=== PATIENT | female | born 1970 | race Caucasian/White ===

== ENCOUNTER 2016-12-15 08:16 | Emergency (ER) | payer BC ==
[2016-12-15 08:41] VITALS: BP 122/81
[2016-12-15] MEDS ORDERED: Tetan/Diph/Pertus SYR(Tdap)* 0.5 ML SYR(BOOSTRIX) use SYR IM ONE (09:10)
[2016-12-15 12:28] LABS: Hematocrit 45 % (35-47); Hemoglobin 14.7 g/dl (12.0-16.0); Mean Corpuscular HGB Conc 33 g/dl (31-36); Mean Corpuscular Hemoglobin 29 pg (27-31); Mean Corpuscular Volume 87 fL (80-97); Mean Platelet Volume 9 um3 (7.4-10.4); Red Blood Count 5.11 10^6/ul (4.0-5.4); Red Cell Distribution Width 15 % (10.5-15); White Blood Count 11.2 10^3/ul (3.5-10.8)
[2016-12-15 13:54] LABS: Erythrocyte Sed Rate 35 mm/Hr (0-14)
--- NOTE | 2016-12-16 12:53 | UC ---
Progress - Progress Note Progress Note: PLS CALL PT. LABS RESULTS C/W INFLAMMATORY PROCESS LIKELY DUE TO CURRENT ACUTE CONDITION. VARICELLA AND LYME SEROLOGY NOT YET AVAILABLE - NEHA DURHAM MD
[2016-12-16 14:35] LABS: Varicella IgG Antibody Index 2.4; Varicella-Zoster IgG Antibody Positive
[2016-12-16 23:12] LABS: Varicella-Zoster IgM Antibody Negative (Negative)
--- NOTE | 2017-01-09 11:19 | UC ---
Viet Berkowitz Angela, scribed for Jayla Hamilton MD on 12/15/16 at 0854 . Skin Complaint HPI - HPI Summary HPI Summary: This pt is a 45 y/o female presenting to [facility] c/o rash on her lower neck. Pt reports her rash is painful since yesterday. She just noticed her rash today. Pt denies involvement of any other body parts. Pt notes a slight headache but denies cough, rhinorrhea. She states she has been stressed recently with work, working "crazy hours," and with her grandmother in the hospital. Pt had the chicken pox at a younger age, unsure of what age. PMHx: HTN. Her PCP is Dr. Hood. She states her last tetanus shot was approximately 10 years ago. - History of Current Complaint Chief Complaint: UCRash Stated Complaint: RASH Hx Obtained From: Patient Hx Last Menstrual Period: tubal ligation Onset/Duration: Lasting Days - 1, Still Present Skin Exposure Onset/Duration: Days Ago - 1 Timing: Constant Pain Intensity: 3 Pain Scale Used: 0-10 Numeric Location: Other - lower neck Character: Pain, Redness Associated Signs & Symptoms: Positive: Rash - and headache - Allergy/Home Medications Allergies/Adverse Reactions: Allergies Allergy/AdvReac Type Severity Reaction Status Date / Time No Known Allergies Allergy Verified 07/01/16 09:04 Review of Systems Constitutional: Negative Skin: Rash Eyes: Negative ENT: Negative Respiratory: Negative Cardiovascular: Negative Gastrointestinal: Negative Genitourinary: Negative Motor: Negative Neurovascular: Negative Musculoskeletal: Negative Neurological: Headache Psychological: Negative Is Patient Immunocompromised?: No All Other Systems Reviewed And Are Negative: Yes PMH/Surg Hx/FS Hx/Imm Hx Other Endocrine History: DENIES: diabetes Cardiovascular History: Hypertension - Surgical History Surgical History: Yes Surgery Procedure, Year, and Place: gall bladder removed. APPENDECTOMY. tubal ligation - Family History Known Family History: Positive: Hypertension - mother, Diabetes - father, Other - Breast CA in maternal grandmother's sisters. Father: prostate CA. - Social History Alcohol Use: Occasionally Substance Use Type: None Smoking Status (MU): Never Smoked Tobacco Physical Exam Triage Information Reviewed: Yes Appearance: Well-Nourished Vital Signs: Initial Vital Signs Temp 98.0 F 12/15/16 08:33 Pulse 69 10/24/17 08:33 Resp 18 12/15/16 08:33 BP 122/81 12/15/16 08:33 Pulse Ox 98 12/15/16 08:33 Vital Signs Reviewed: Yes Eye Exam: Normal ENT Exam: Normal ENT: Positive: TMs normal. Negative: Pharyngeal erythema Neck exam: Normal - see "skin" Neck: Positive: Supple Respiratory: Positive: Chest non-tender, Lungs clear, Normal breath sounds, No respiratory distress, No accessory muscle use Cardiovascular: Positive: RRR, No Murmur, Pulses Normal, Brisk Capillary Refill Abdominal Exam: Normal Abdomen Description: Positive: Nontender, No Organomegaly, Soft Bowel Sounds: Positive: Present Musculoskeletal Exam: Normal Musculoskeletal: Positive: Strength Intact - moves all 4 ext's Neurological Exam: Normal - nonfocal, grossly intact Psychological Exam: Normal - conversing easily and appropriately Skin: Positive: rashes - Left shoulder - approx 4cm by 2 cm red raised lesions with some papular formation. + underlying muscle tenderness. No fluctuance. Course/Dx - Course Course Of Treatment: Left upper shoulder rash, concerning for varicella zoster. Can not exclude alternate etiology, as such will check blood work. reviewed wound care instructions, ashleigh need to avoid astringents, avoid picking. reviewed contact precautions. F/u pcp 1 week. Blood work as below. - Diagnoses Provider Diagnoses: Left upper shoulder rash, concerning for varicella zoster. see above Discharge - Discharge Plan Condition: Stable Disposition: HOME Prescriptions: Mupirocin 2% OINT* [Bactroban 2 % Oint*] 1 applic TOPICAL DAILY #1 tube ValACYclovir (*) [Valtrex 1 GM(*)] 1 gm PO TID #30 tab Patient Education Materials: Diphtheria/Acellular Pertussis/Tetanus Booster Vaccine (By injection), Shingles (ED) Referrals: Laron Hood MD [Primary Care Provider] - Additional Instructions: Rash concerning for shingles. Blood work today. Avoid astringents, local irritants to the wound(s). Please follow up with your primary care provider in approximately 1 week. Seek medical attention for worse or new problems in the meantime. The documentation as recorded by the Viet dawkins Angela accurately reflects the service I personally performed and the decisions made by me, Jayla Hamilton MD.
== END 2016-12-15 09:39 | disposition home or self-care (01) ==
LOC: UCEAST 08:16
DX: R21 Rash and other nonspecific skin eruption (principal); R51 Headache; Z23 Encounter for immunization; I10 Essential (primary) hypertension; Z90.49 Acquired absence of other specified parts of digestive tract; Z90.89 Acquired absence of other organs
CPT/HCPCS: 36415; 85025; 85652; 86140; 86618; 86787; 90471; 90715; 99212; G0463

== ENCOUNTER 2017-09-03 08:02 | Observation (INO) | payer BC ==
[~2017-09-03 08:02] MED LIST: Buffered Lidocaine 0.9% SYRIN* 5 ML/SYR SYRINGE INTRADERM ONE
[2017-09-03] MEDS ORDERED: ceFAZolin 2 GM PREMIX in ORs 2 GM/50 ML BAG IVPB ONE (08:06)
--- OUTSIDE RECORDS SUMMARY | 2017-09-03 08:08 | XMS REPORT ---
:1970 External Reference #:[id number] Author Organization Formerly [facility] Address [address] [place] [address] Phone [phone] Care Team Providers Name Role Phone Laron Hood M.D. Primary Care Physician Unavailable Payers Type Date Identification Numbers Payment Provider Subscriber Commercial Effective: Policy Number: [id number] Sengus MEYER Lety Caruso 2009 Expires: 2012 Group Name: [employer] [address] [address] PayID: [id number] HAILEE Murillo 56421 Medigap Part B Effective: 2001 Policy Number: Brayan CAMARGOLOKI Lety Caruso [id number] Expires: 2009 Group Number: [id number] [address] Group Name: BC/BS HAILEE Crews 18543 PayID: [id number] Medigap Part B Effective: 2012 Policy Number: Sengus MEYER Lety Caruso [id number] Group Name: Marlene [address] [address] PayID: [id number] HAILEE Murillo 78551 Problems Description No Information Family History Date Family Member(s) Problem(s) Comments Father Alcoholism Father Cancer, Prostate Father Diabetes Father Pulmonary Embolism x 2. s/p spine surgery and immobility Mother Asthma Mother Hypertension First Brother due to Cancer () First Brother due to () Alcoholism First Brother due to Cirrhosis () First Brother due to () - and Alcoholism bleeding First Sister Thyroid Disease First Sister Alcoholism First Sister Obesity : (age Maternal Grandfather due to Stroke 88 Years) Maternal Grandfather CAD AR and CABG at 88 Maternal Grandfather Atrial Fibrillation Paternal Uncles Diabetes Paternal Uncles due to AR () - around 60's. Paternal Aunts Obesity Social History Type Date Description Comments Marital Status Lives With Spouse Lives With Son Lives With Daughter Occupation [employer] Manager for [employer] Smoking Patient smoking status is unknown Allergies, Adverse Reactions, Alerts Date Description Reaction Status Severity Comments 01/03/2004 Levaquin active "insomnia" Medications Medication Date Status Form Strength Qnty SIG Indications Ordering Provider Lisinopril 11/01 Active Tablets 2.5mg 30tab take one Digna s tablet by P. mouth every Blegen, day M.D. Hydrochlorothiazid 10/08 Active Tablets 12.5mg 30tab Take One I10 Liz e s Tablet By Killian, Mouth Every M.D., Morning R.D. Citalopram 10/18 Active Tablets 10mg 30tab take one Crystal Hydrobromide s tablet by Charly, mouth every BLOOD BANK ORDER CONTROL CLERK day Meloxicam Active Tablets 7.5mg take 1 Unknown /0000 tablet by mouth twice daily with food as needed Ketorolac 03/11 Hx Tablets 10mg 20tab Take 1 B27.99 Crystal Tromethamine s tablet by Charly, - mouth every BLOOD BANK ORDER CONTROL CLERK 08/23 6 hours need for pain. DO Not Take for more than 5 days. Take with food Cheratussin ac 02/11 Hx Solution 100-10mg/ 473ml 10 J06.9 Crystal 5ML milliliters Charly, - every 4 to BLOOD BANK ORDER CONTROL CLERK 08/23 6 hours needed; maximum daily dose: 60 ml/day Transderm-Scop 03/22 Hx Patches 1mg/3Days 10uni apply one Laron (1.5 MG) 72HR ts patch q 3 Hood, - days. M.D. 06/10 Apply 4 hrs /2016 before boarding ship. Do not cut patches. Cyclobenzaprine 04/04 Hx Tablets 10mg 30tab 1/2 or 1 by S33.6xxD Shawnti HCL s mouth three R. Storm, - times a day GAME DEVELOPER-C 04/14 for muscle spasm, will cause tiredness Naproxen 04/04 Hx Tablets 500mg 60tab one tab by wjorgei /2015 s mouth twice R. Storm, - daily with GAME DEVELOPER-C 06/10 food for pain/inflam mation Medrol (Zeeshan) 03/30 Hx Tablets 4mg 21tab Take as M54.5 Liz s Billy Castañeda M.D., 06/10 R.D. /2016 Triamcinolone 03/25 Hx Cream 0.1% 15gm apply Laron Acetonide /2012 sparingly Hood, - to affected M.D. 11/08 area bid /2014 Citalopram 09/10 Hx Tablets 20mg 30tab 1 tablet po 300.02 Itzel Hydrobromide s qd Jose, - GAME DEVELOPER-C 10/18 Paroxetine HCL 08/31 Hx Tablets 20mg 30tab 1/2 tablet 300.02 Itzel s po for 7 Jose, - days, then GAME DEVELOPER-C 09/10 1 po qd Hydroxyzine HCL 08/31 Hx Tablets 25mg 30tab 1-2 po q 6 300.02 Itzel s hr prn Jose, - anxiety/ins GAME DEVELOPER-C 11/08 omnia Tretinoin 08/31 Hx Cream 0.05% 20gm apply a 706.1 Itzel thin layer Jose, - to your GAME DEVELOPER-C 11/08 face hs after washing Clindamycin 08/31 Hx Gel 1% 60gm apply a 706.1 thin film Jose, - to face GAME DEVELOPER-C 11/08 once or /2014 twice daily Amoxicillin 02/20 Hx Tablets 875mg 20tab 1 po bid 034.0 s for 10 days Kaitlin Willoughby, 08/31 M.DLencho /2011 Asmanex 01/02 Hx Inhaler 220mcg 1unit 1 puff qd 786.2 Veronica Twistihaler /2008 s A. - Augustin, 11/08 F.N.P.C. /2014 Maxair Autohaler 01/02 Hx Aerosol 200mcg/In 2 puffs 786.2 Veronica /2008 h every 4-6 A. - hours prn, Augustni, 11/08 bronchospas F.N.P.C. /2014 m Mirena 09/14 Hx IUD 20mcg/24H inserted R 01/29 Billy Hood M.D. 04/28 Codeine Phosphate 12/03 Hx Solution 15mg/5ML 80ml 1-4 tsp q4h prn Billy Hood M.D. 12/03 Oxycodone HCL 12/03 Hx Capsules 5mg 30cap 1-2 q4h prn s Billy Hood M.D. 01/02 Zithromax 06/10 Hx Tablets 250mg 6tabs 2 On Day 461.8 One, Then Erwin - One qd X4 M.DLencho Diflucan 06/10 Hx Tablets 150mg 1tabs 1 Tablet Once prn Billy Hood M.D. 09/08 Ortho Tri-Cyclen Hx Tablets 0.035mg;0 Varn,Althea /0000 .18mg;0.0 gaye - 35 09/14 Medications Administered in Office Medication Date Status Form Strength Qnty SIG Indications Ordering Provider Injection Administered Injection [facility] Ketorolac 018 Shortle, Tromethamine BLOOD BANK ORDER CONTROL CLERK Per 15 MG (Toradol) Immunizations CPT Code Status Date Vaccine Lot # [id number] Given 11/23/2016 Influenza Virus Vaccine, Quadrivalent, 3 Yr > Quad, Preserv Free 77642 Given 01/22/2015 Influenza Virus Vaccine, Quadrivalent, 3 Yr > [id number] Quad, Preserv Free 20076 Given 12/31/2006 Influenza Virus Vaccine, 3 Yrs And Above 37021 Given 01/01/2006 Influenza Virus Vaccine, 3 Yrs And Above [id number] 16273 Given 10/20/2005 Tdap (Adacel) [id number] Given 12/01/2004 Influenza Virus Vaccine, 3 Yrs And Above Vital Signs Date Vital Result Comment 08/23/2017 Weight 181.00 lb Weight in kg's 82.102 BP Systolic 118 mmHg BP Diastolic 82 mmHg Heart Rate 71 /min Body Temperature 99.2 F Respiratory Rate 18 /min O2 % BldC Oximetry 98 % 03/15/2017 BP Systolic 150 mmHg BP Diastolic 97 mmHg Heart Rate 76 /min Body Temperature 98.9 F 03/11/2017 Weight 200.00 lb Weight in kg's 90.720 BP Systolic 130 mmHg BP Diastolic 88 mmHg Heart Rate 102 /min Body Temperature 98.5 F Respiratory Rate 16 /min 03/04/2017 Weight 198.00 lb Weight in kg's 89.813 BP Systolic 110 mmHg BP Diastolic 72 mmHg Heart Rate 88 /min Body Temperature 98.2 F Respiratory Rate 14 /min O2 % BldC Oximetry 98 % 02/11/2017 Weight 199.00 lb Weight in kg's 90.266 BP Systolic 122 mmHg BP Diastolic 98 mmHg Heart Rate 76 /min Body Temperature 97.3 F Respiratory Rate 18 /min O2 % BldC Oximetry 98 % 12/29/2016 BP Systolic 107 mmHg BP Diastolic 68 mmHg Heart Rate 68 /min Body Temperature 99.5 F 06/24/2016 Weight 198.00 lb Weight in kg's 89.813 BP Systolic 112 mmHg BP Diastolic 80 mmHg Heart Rate 76 /min Body Temperature 98.6 F Respiratory Rate 12 /min Height 65 inches 5'5" BMI (Body Mass Index) 32.9 kg/m2 Last Menstrual Period [id number] 06/10/2016 Weight 198.00 lb Weight in kg's 89.813 BP Systolic 120 mmHg BP Diastolic 82 mmHg Heart Rate 73 /min Body Temperature 97.5 F Respiratory Rate 17 /min O2 % BldC Oximetry 98 % 04/04/2015 Weight 191.00 lb Weight in kg's 86.638 BP Systolic 124 mmHg BP Diastolic 68 mmHg Heart Rate 82 /min 03/30/2015 Weight 190.00 lb Weight in kg's 86.184 BP Systolic 140 mmHg BP Diastolic 104 mmHg Heart Rate 88 /min 03/12/2015 Weight 189.00 lb Weight in kg's 85.730 BP Systolic 136 mmHg BP Diastolic 80 mmHg Heart Rate 70 /min 11/08/2014 Weight 182.00 lb Weight in kg's 82.555 BP Systolic 124 mmHg BP Diastolic 72 mmHg Heart Rate 66 /min Height 64 inches 5'4" BMI (Body Mass Index) 31.2 kg/m2 Last Menstrual Period [id number] 10/08/2014 Weight 180.00 lb Weight in kg's 81.648 BP Systolic 160 mmHg BP Diastolic 90 mmHg Heart Rate 68 /min 03/25/2012 Weight 197.00 lb Weight in kg's 89.359 BP Systolic 136 mmHg BP Diastolic 96 mmHg Heart Rate 80 /min Body Temperature 97.9 F 01/20/2012 Weight 194.00 lb Weight in kg's 87.998 BP Systolic 118 mmHg BP Diastolic 68 mmHg Heart Rate 78 /min 09/25/2011 Weight 187.00 lb Weight in kg's 84.823 BP Systolic 110 mmHg BP Diastolic 80 mmHg Heart Rate 84 /min 09/11/2011 Weight 185.00 lb Weight in kg's 83.916 BP Systolic 130 mmHg BP Diastolic 82 mmHg Heart Rate 88 /min Height 65.25 inches 5'5.25" BMI (Body Mass Index) 30.5 kg/m2 09/01/2011 Weight 187.00 lb Weight in kg's 84.823 BP Systolic 140 mmHg BP Diastolic 94 mmHg Heart Rate 100 /min Body Temperature 98.8 F 02/20/2011 Weight 176.00 lb Weight in kg's 79.834 BP Systolic 122 mmHg BP Diastolic 76 mmHg Heart Rate 68 /min 01/02/2009 Weight 168.00 lb Weight in kg's 76.205 BP Systolic 120 mmHg BP Diastolic 78 mmHg Heart Rate 68 /min Body Temperature 97.7 F O2 % BldC Oximetry 98 % 12/10/2008 Weight 168.00 lb Weight in kg's 76.205 BP Systolic 118 mmHg BP Diastolic 80 mmHg Heart Rate 72 /min Body Temperature 98.0 F 09/14/2008 Weight 164.00 lb Weight in kg's 74.390 BP Systolic 130 mmHg BP Diastolic 70 mmHg Heart Rate 68 /min 12/09/2007 BP Systolic 160 mmHg BP Diastolic 110 mmHg Heart Rate 62 /min Height 64 inches 5'4" 12/07/2007 Weight 165.00 lb Weight in kg's 74.844 BP Systolic 160 mmHg Left arm 168/104. right 158/96 BP Diastolic 100 mmHg Left arm 168/104. right 158/96 Heart Rate 80 /min Height 64 inches 5'4" BMI (Body Mass Index) 28.3 kg/m2 12/03/2006 Weight 150.00 lb Weight in kg's 68.040 BP Systolic 122 mmHg BP Diastolic 82 mmHg Heart Rate 98 /min Body Temperature 98.9 F Height 64 inches 5'4" BMI (Body Mass Index) 25.7 kg/m2 06/10/2006 BP Systolic 110 mmHg BP Diastolic 70 mmHg Heart Rate 64 /min Body Temperature 97.1 F Height 64 inches 5'4" 01/03/2004 Weight 141.00 lb Weight in kg's 63.958 BP Systolic 116 mmHg BP Diastolic 64 mmHg Heart Rate 72 /min Body Temperature 98.8 F Height 64 inches 5'4" BMI (Body Mass Index) 24.2 kg/m2 Results Test Date Test Result H/L Range Note CBC Auto Diff 08/24/2017 White Blood Count 10.0 10^3/uL 3.5-10.8 Red Blood Count 4.54 10^6/uL 4.00-5.40 Hemoglobin 12.3 g/dL 12.0-16.0 Hematocrit 37 % 35-47 Mean Corpuscular Volume 80 fL 80-97 Mean Corpuscular Hemoglobin 27 pg 27-31 Mean Corpuscular HGB Conc 34 g/dL 31-36 Red Cell Distribution Width 16 % High 10.5-15 Platelet Count 356 10^3/uL 150-450 Mean Platelet Volume 9.0 um3 7.4-10.4 Abs Neutrophils 6.8 10^3/uL 1.5-7.7 Abs Lymphocytes 2.0 10^3/uL 1.0-4.8 Abs Monocytes 0.8 10^3/uL 0-0.8 Abs Eosinophils 0.2 10^3/uL 0-0.6 Abs Basophils 0.1 10^3/uL 0-0.2 Abs Nucleated RBC 0 10^3/uL Granulocyte % 68.5 % 38-83 Lymphocyte % 19.9 % Low 25-47 Monocyte % 8.3 % High 0-7 Eosinophil % 2.5 % 0-6 Basophil % 0.8 % 0-2 Nucleated Red Blood Cells % 0 Type & Screen 08/24/2017 Patient Blood Type A Positive Antibody Screen NEGATIVE Laboratory test 05/04/2017 Cytology SEE RESULT BELOW 1 finding Laboratory test 03/04/2017 Culture Throat SEE RESULT BELOW 2 finding CBC Auto Diff 03/04/2017 White Blood Count 14.0 10^3/uL High 3.5-10.8 Red Blood Count 4.64 10^6/uL 4.0-5.4 Hemoglobin 13.3 g/dL 12.0-16.0 Hematocrit 41 % 35-47 Mean Corpuscular Volume 89 fL 80-97 Mean Corpuscular Hemoglobin 29 pg 27-31 Mean Corpuscular HGB Conc 32 g/dL 31-36 Red Cell Distribution Width 15 % 10.5-15 Platelet Count 372 10^3/uL 150-450 Mean Platelet Volume 9 um3 7.4-10.4 Abs Neutrophils 10.8 10^3/uL High 1.5-7.7 Abs Lymphocytes 1.8 10^3/uL 1.0-4.8 Abs Monocytes 1.1 10^3/uL High 0-0.8 Abs Eosinophils 0.3 10^3/uL 0-0.6 Abs Basophils 0.1 10^3/uL 0-0.2 Abs Nucleated RBC 0 10^3/uL Granulocyte % 77.2 % 38-83 Lymphocyte % 12.7 % Low 25-47 Monocyte % 7.7 % 1-9 Eosinophil % 1.8 % 0-6 Basophil % 0.6 % 0-2 Nucleated Red Blood Cells % 0 Comp Metabolic Panel 03/04/2017 Sodium 136 mmol/L 133-145 Potassium 3.7 mmol/L 3.5-5.0 Chloride 100 mmol/L Low 101-111 Co2 Carbon Dioxide 26 mmol/L 22-32 Anion Gap 10 mmol/L 2-11 Glucose 113 mg/dL High 70-100 Blood Urea Nitrogen 10 mg/dL 6-24 Creatinine 0.69 mg/dL 0.51-0.95 BUN/Creatinine Ratio 14.5 8-20 Calcium 9.2 mg/dL 8.6-10.3 Total Protein 7.4 g/dL 6.4-8.9 Albumin 4.3 g/dL 3.2-5.2 Globulin 3.1 g/dL 2-4 Albumin/Globulin Ratio 1.4 1-3 Total Bilirubin 0.40 mg/dL 0.2-1.0 Alkaline Phosphatase 102 U/L 34-104 Alt 28 U/L 7-52 Ast 24 U/L 13-39 Egfr Non- 92.4 >60 Egfr 118.9 >60 3 Laboratory test finding 03/04/2017 Monospot Negative Negative 4 Lynn Lantigua Comprehensive 03/04/2017 Ebv Capsid Ag IgG Ab Positive Negative Ebv Capsid Ag IgM Ab Positive Negative Lynn-Lantigua Nuclear Antigen Positive Negative Lynn-Lantigua Virus Interp See Comment 5 Laboratory test finding 02/11/2017 Strep Screen neg Neg CBC W/Auto Differential 12/25/2016 White Blood Count 10.1 10^3/uL 3.5- 10.8 Red Blood Count 4.74 10^6/uL 4.0-5.4 Hemoglobin 13.8 g/dL 12.0-16.0 Hematocrit 42 % 35-47 Mean Corpuscular Volume 89 fL 80-97 Mean Corpuscular Hemoglobin 29 pg 27-31 Mean Corpuscular HGB Conc 33 g/dL 31-36 Red Cell Distribution Width 15 % 10.5-15 Platelet Count 350 10^3/uL 150-450 Mean Platelet Volume 9 um3 7.4-10.4 Abs Neutrophils 5.9 10^3/uL 1.5-7.7 Abs Lymphocytes 3.0 10^3/uL 1.0-4.8 Abs Monocytes 0.8 10^3/uL 0-0.8 Abs Eosinophils 0.4 10^3/uL 0-0.6 Abs Basophils 0.1 10^3/uL 0-0.2 Abs Nucleated RBC 0.01 10^3/uL Granulocyte % 58.0 % 38-83 Lymphocyte % 29.5 % 25-47 Monocyte % 8.1 % 1-9 Eosinophil % 3.6 % 0-6 Basophil % 0.8 % 0-2 Nucleated Red Blood Cells % 0.1 Laboratory test finding 12/25/2016 Erythrocyte Sed Rate 36 mm/Hr High 0- 14 C Reactive Protein 12.49 mg/L High < 5.00 6 Laboratory test finding 12/15/2016 C Reactive Protein 10.93 mg/L High < 5.00 7 CBC Auto Diff 12/15/2016 White Blood Count 11.2 10^3/uL High 3.5-10.8 Red Blood Count 5.11 10^6/uL 4.0-5.4 Hemoglobin 14.7 g/dL 12.0-16.0 Hematocrit 45 % 35-47 Mean Corpuscular Volume 87 fL 80-97 Mean Corpuscular Hemoglobin 29 pg 27-31 Mean Corpuscular HGB Conc 33 g/dL 31-36 Red Cell Distribution Width 15 % 10.5-15 Platelet Count 342 10^3/uL 150-450 Mean Platelet Volume 9 um3 7.4-10.4 Abs Neutrophils 7.1 10^3/uL 1.5-7.7 Abs Lymphocytes 2.8 10^3/uL 1.0-4.8 Abs Monocytes 0.9 10^3/uL High 0-0.8 Abs Eosinophils 0.4 10^3/uL 0-0.6 Abs Basophils 0.1 10^3/uL 0-0.2 Abs Nucleated RBC 0 10^3/uL Granulocyte % 62.9 % 38-83 Lymphocyte % 24.8 % Low 25-47 Monocyte % 8.4 % 1-9 Eosinophil % 3.2 % 0-6 Basophil % 0.7 % 0-2 Nucleated Red Blood Cells % 0 Laboratory test finding 12/15/2016 Erythrocyte Sed Rate 35 mm/Hr High 0- 14 Varicella Zoster Igg AB 12/15/2016 Varicella-Zoster IgG Positive 8 Antibody Varicella IgG Antibody Index 2.4 9 Laboratory test finding 12/15/2016 Lyme Disease Serology Negative Negative 10 Varicella Zoster Igm AB Negative Negative 11 Laboratory test finding 07/21/2016 Free Cortisol Serum 0.16 g/dL 12 Prolactin 10.8 ng/mL 1.0-25.0 13 Lyme Western Blot 06/24/2016 Lyme Disease IgG Ab WB Negative Negative Lyme Disease IgG Bands Present No bands detecte <SEE NOTE> kDa 14 Lyme Disease IgM Ab WB Negative Negative Lyme Disease IgM Bands Present No bands detecte <SEE NOTE> kDa 15 Lyme Disease Interpretation See Comment 16 Laboratory test finding 06/24/2016 Anaplasma Phagocytophilium <1:64 titer <1:64 17 Babesia Microti Abs 06/24/2016 Babesia microti IgG <1:64 (Igg,Igm) Babesia microti IgM <1:20 Babesia microti Interpretation See Comment 18 Laboratory test finding 06/24/2016 Erythrocyte Sed Rate 46 mm/Hr High 0- 14 19 C Reactive Protein 16.02 mg/L High < 5.00 20 Cyclic Citrullinated Pep Igg TNP () 21 Connective Tissue Panel 06/24/2016 Anti-Nuclear Antibody 0.7 U 22 Cyclic Citrullinated Peptide <15.6 U 23 Interpretation See Comment 24 Laboratory test 06/24/2016 Vitamin D Total 25(Oh) 19.0 ng/mL Low 30-50 25 finding Laboratory test 06/10/2016 Anaplasma Phagocytophilium <1:64 titer <1:64 26 finding Babesia Microti Abs 06/10/2016 Babesia microti IgG <1:64 (Igg,Igm) Babesia microti IgM <1:20 Babesia microti Interpretation See Comment 27 CBC Auto Diff 06/10/2016 White Blood Count 7.8 10^3/uL 3.5-10.8 Red Blood Count 4.65 10^6/uL 4.0-5.4 Hemoglobin 13.5 g/dL 12.0-16.0 Hematocrit 41 % 35-47 Mean Corpuscular Volume 89 fL 80-97 Mean Corpuscular Hemoglobin 29 pg 27-31 Mean Corpuscular HGB Conc 33 g/dL 31-36 Red Cell Distribution Width 14 % 10.5-15 Platelet Count 298 10^3/uL 150-450 Mean Platelet Volume 9 um3 7.4-10.4 Abs Neutrophils 4.4 10^3/uL 1.5-7.7 Abs Lymphocytes 2.3 10^3/uL 1.0-4.8 Abs Monocytes 0.7 10^3/uL 0-0.8 Abs Eosinophils 0.3 10^3/uL 0-0.6 Abs Basophils 0 10^3/uL 0-0.2 Abs Nucleated RBC 0.01 10^3/uL Granulocyte % 57.0 % 38-83 Lymphocyte % 29.5 % 25-47 Monocyte % 9.0 % 1-9 Eosinophil % 3.9 % 0-6 Basophil % 0.6 % 0-2 Nucleated Red Blood Cells % 0.1 Comp Metabolic Panel 06/10/2016 Sodium 139 mmol/L 133-145 Potassium 3.9 mmol/L 3.5-5.0 Chloride 105 mmol/L 101-111 Co2 Carbon Dioxide 28 mmol/L 22-32 Anion Gap 6 mmol/L 2-11 Glucose 84 mg/dL 70-100 Blood Urea Nitrogen 13 mg/dL 6-24 Creatinine 0.68 mg/dL 0.51-0.95 BUN/Creatinine Ratio 19.1 8-20 Calcium 9.1 mg/dL 8.6-10.3 Total Protein 6.6 g/dL 6.4-8.9 Albumin 3.9 g/dL 3.2-5.2 Globulin 2.7 g/dL 2-4 Albumin/Globulin Ratio 1.4 1-3 Total Bilirubin 0.20 mg/dL 0.2-1.0 Alkaline Phosphatase 80 U/L 34-104 Alt 33 U/L 7-52 Ast 23 U/L 13-39 Egfr Non- 94.4 >60 Egfr 121.4 >60 28 CMV Igg/Igm 06/10/2016 Cytomegalovirus IgG Antibody Positive Negative 29 Cytomegalovirus IgM Antibody Negative Negative Lipid Profile (Trig/Chol/HDL) 06/10/2016 Triglycerides 131 mg/dL 30 Cholesterol 197 mg/dL 31 HDL Cholesterol 33.1 mg/dL 32 LDL Cholesterol 138 mg/dL 33 Laboratory test finding 06/10/2016 Magnesium 2.1 mg/dL 1.9-2.7 34 Vitamin B12 481 pg/mL 180-914 35 Erythrocyte Sed Rate 36 mm/Hr High 0-14 36 C Reactive Protein 11.97 mg/L High < 5.00 37 T3 Total 1.51 ng/mL 0.87-1.78 38 Free T4 (Free Thyroxine) 0.96 ng/dL 0.61-1.12 39 TSH (Thyroid Stim Horm) 2.23 mcIU/mL 0.34-5.60 40 Lyme Western Blot 06/10/2016 Lyme Disease IgG Ab WB Negative Negative Lyme Disease IgG Bands Present No bands detecte <SEE NOTE> kDa 41 Lyme Disease IgM Ab WB Negative Negative Lyme Disease IgM Bands Present No bands detecte <SEE NOTE> kDa 42 Lyme Disease Interpretation See Comment 43 Lipid Profile (Trig/Chol/HDL) 10/09/2014 Triglycerides 55 mg/dL 44 Cholesterol 182 mg/dL 45 HDL Cholesterol 45.3 mg/dL 46 LDL Cholesterol 126 mg/dL 47 Laboratory test finding 10/09/2014 TSH (Thyroid Stimulating 3.87 ?IU/mL 0.34-5.60 48 Horm) Comp Metabolic Panel 10/09/2014 Sodium 138 mmol/L 133-145 Potassium 4.0 mmol/L 3.5-5.0 Chloride 106 mmol/L 101-111 Co2 Carbon Dioxide 26 mmol/L 22-32 Anion Gap 6 mmol/L 2-11 Glucose 88 mg/dL 70-100 Blood Urea Nitrogen 11 mg/dL 6-24 Creatinine 0.69 mg/dL 0.51-0.95 BUN/Creatinine Ratio 15.9 8-20 Calcium 8.7 mg/dL 8.6-10.3 Total Protein 6.8 g/dL 6.4-8.9 Albumin 4.4 g/dL 3.2-5.2 Globulin 2.4 g/dL 2-4 Albumin/Globulin Ratio 1.8 1-3 Total Bilirubin 0.40 mg/dL 0.2-1.0 Alkaline Phosphatase 71 U/L 34-104 Alt 46 U/L 7-52 Ast 27 U/L 13-39 Egfr Non- 93.8 >60 Egfr 120.6 >60 49 CBC Auto Diff 10/09/2014 White Blood Count 8.6 10^3/uL 4.8-10.8 Red Blood Count 4.60 10^6/uL 4.0-5.4 Hemoglobin 14.4 g/dL 12.0-16.0 Hematocrit 43 % 35-47 Mean Corpuscular Volume 94 fL 80-97 Mean Corpuscular Hemoglobin 31 pg 27-31 Mean Corpuscular HGB Conc 33 g/dL 31-36 Red Cell Distribution Width 14 % 10.5-15 Platelet Count 236 10^3/uL 150-450 Mean Platelet Volume 9 um3 7.4-10.4 Abs Neutrophils 5.6 10^3/uL 1.5-7.7 Abs Lymphocytes 1.9 10^3/uL 1.0-4.8 Abs Monocytes 0.6 10^3/uL 0-0.8 Abs Eosinophils 0.4 10^3/uL 0-0.6 Abs Basophils 0.1 10^3/uL 0-0.2 Abs Nucleated RBC 0 10^3/uL Granulocyte % 64.7 % 38-83 Lymphocyte % 22.4 % Low 25-47 Monocyte % 7.5 % 1-9 Eosinophil % 4.5 % 0-6 Basophil % 0.9 % 0-2 Nucleated Red Blood Cells % 0 Testosterone Free & Total 09/11/2011 Free Testosterone 0.7 ng/dL 0.3-1.9 50 Total Testosterone 40 ng/dL 8-60 51 Laboratory test finding 09/11/2011 Adrenal 21-Hydroxylase AB <1 U/mL <1 52 Dhea Sulfate 88.0 g/dL 31-228 53 Progesterone,17 Hydroxy 232 ng/dL () 54 Prolactin 20.40 NG/ML 1.0-25.0 Hemoglobin A1c 5.5 % Less Than 6.0 55 Thyroid Panel 09/02/2011 Free Thyroxine 0.74 ng/dL 0.61-1.24 Thyroxine 6.5 g/dL 5-12 TSH 2.01 MIU/ML 0.34-5.60 CBC Auto Diff 09/02/2011 White Blood Count 8.4 CUMM 4.8-10.8 Red Cell Count 4.63 CUMM 4.2-5.4 Hemoglobin 14.3 g/dL 12.0-16.0 Hematocrit 42 % 35-47 Mean Corpuscular Volume 91 um3 79-97 Mean Corpuscular Hemoglob 31 pg 27-31 Mean Corpuscular HGB Cone 34 g/dL 32-36 Redcell Distribution WDTH 13 % 10.5-15 Platelet Count 295 CUMM 150-450 Mean Platelet Volume 8.6 um3 7.4-10.4 Gran % 62.8 % 38-83 Lymph % 25.6 % 25-47 Mononuclear % 7.5 % 1-9 Eosinophil % 3.4 % 0-6 Basophil % 0.7 % 0-2 Abs Lymphs 2.1 1.0-4.8 Abs Mononuclear 0.6 0-0.8 Absolute Neutrophil Count 5.3 1.5-7.7 Abs Eosinophils 0.3 0-0.6 Abs Basophils 0.1 0-0.2 Comp Metabolic Panel 09/02/2011 Sodium 139 mmol/L 135-145 Potassium 4.0 mmol/L 3.5-5.0 Chloride 105 mmol/L 101-111 Co2 (Carbon Dioxide) 26.0 mmol/L 22-32 Anion Gap 8.0 mmol/L 2-11 56 Glucose 107 mg/dL High 70-100 BUN 5 mg/dL Low 6-24 Creatinine 0.7 mg/dL 0.50-1.40 One Over Creatinine 1.42 BUN/Creatinine Ratio 7.1 Low 8-20 Calcium 8.9 mg/dL 8.1-9.9 Total Protein 6.4 GM/DL 6.2-8.1 Albumin 3.9 GM/DL 3.6-5.4 Globulin 2.5 GM/DL 2-4 Albumin/Globulin Ratio 1.6 1-3 Bilirubin Total 0.5 mg/dL 0.4-1.5 57 Alkaline Phosphatase 76 U/L 30-110 Alt (SGPT) 37 U/L 14-54 Ast (Sgot) 31 U/L 12-42 eGFR Non- 93.6 > 60 eGFR 120.4 > 60 58 Laboratory test finding 02/20/2011 Strep Screen POS Neg Laboratory test finding 12/10/2008 Strep Screen NEG Neg Laboratory test finding 12/07/2007 GFR (Calculated) >60 59 Laboratory test finding 12/07/2007 TSH (Thyrotropin) 2.320 uIU/ml 0.350- 5.500 T-3 Total 161.1 ng/dL 87.0-216.0 T-4 Free 1.1 ng/dL 0.8-1.8 Comprehensive Metabolic 12/07/2007 Glucose 100 mg/dL 70-100 BUN 16 mg/dL 4-18 Creatinine, Serum 1.0 mg/dL 0.5-1.2 Sodium 143 mmol/L 136-146 Potassium 4.0 mmol/L 3.5-5.3 Chloride 108 mmol/L 98-110 Carbon Dioxide 25 mmol/L 20-32 Albumin 4.4 g/dL 3.5-4.7 Protein, Total 7.3 g/dL 6.4-8.3 Calcium 9.0 mg/dL 8.4-10.4 Alkaline Phosphatase 81 U/L 10-118 Sgot (Ast) 23 U/L 3-40 SGPT (Alt) 24 U/L 7-50 Bilirubin, Total 0.20 mg/dL Low 0.30-1.20 CBC 12/07/2007 WBC 9.3 x103 4.3-10.9 RBC 4.51 x106 3.80-5.30 Hemoglobin 13.9 g/dL 11.8-15.8 Hematocrit 42.8 % 35.0-47.0 MCV 94.9 fl 82.0-98.0 MCH 30.8 pg 27.5-33.5 MCHC 32.5 g/dL 32.0-36.0 RDW 13.5 % 11.5-14.5 Platelet Count 348 x103 130-400 MPV 11.0 fl High 6.5-10.5 Segmented Neutrophils 64.2 % 44.0-74.0 Lymphocytes 26.1 % 15.0-45.0 Monocytes 7.5 % 2.0-13.0 Eosinophils 1.6 % 0.0-6.0 Basophils 0.6 % 0.0-2.0 Neutrophil Absolute 6.0 x103 1.4-7.0 Lymphocytes Absolute 2.4 x103 1.0-3.4 Monocyte Absolute 0.7 x103 0.2-1.0 Eosinophil Absolute 0.1 x103 0.0-0.5 Basophil Absolute 0.1 x103 0.0-0.2 Laboratory test 12/03/2006 Throat Culture Full NORMAL THROAT FL <SEE 60 finding NOTE> Laboratory test 12/03/2006 Strep Screen NEG Neg finding Laboratory test 12/03/2006 Flu Test A&B, NEG finding [facility] Laboratory test 01/10/2004 Pathology Report GALLBLADDER finding 1 SEE RESULT BELOW Name: LETY CARUSO : [address]: Tarik Gonzales MD Acct: [id number] Unit: [id number] AGE: 46 Location: [facility] Re05/04/17 SEX: F Status: REG REF SPEC: [id number] IDALIA: [id number] [facility] DR: Tarik Gonzales MD REQ: [id number] RECD: 05/05/17 STATUS: BUTCH [place]SL[place] DR: Laron Hood MD _ ORDERED: TP IMAGE ANAL, HPV/Thin Prep COMMENTS: [id number] Negative for Intraepithelial lesion or Malignancy A. Ectocervical/Endocervical Specimen Adequacy: Satisfactory of evaluation Transformation zone component identified Patient Information: HPV: High risk HPV RNA testing regardless of pap results. Actual Specimen Date: 05/04/17 LMP If Unknown: Last Menstrual Period Not Given. Date of Last Specimen: 11/20/15 Date Time Test Result Flag (u) Normal Range 05/04/17 1537 @ HPV RNA Negative Negative @ @ The high-risk HPV types detected by the assay include: 16, @ 18, 31, 33, 35, 39, 45, 51, 52, 56, 58, 59, 66, and 68. Signed (signature on file) PANFILO Stanley ([facility]) 05/06 7487 This Pap test was evaluated with the assistance of the [employer] [facility]. Due to cytologic findings at the appliances sample maker microscope, comprehensive manual rescreening by a Binder Technician may be required. The Pap Smear is a screening test designed to aid in the detection of premalignant and malignant conditions of the uterine cervix. It is not a diagnostic procedure and should not be used as the sole means of detecting cervical cancer. Both false- positive and false- negative reports do occur. Depending on your risk status, a Pap smear should be obtained and evaluated every 1-3 years. END OF REPORT DEPARTMENT OF PATHOLOGY, [address] [place] [address] Neo Coffey M.D. Director [facility] # [id number] 2 SEE RESULT BELOW Name: LETY CARUSO : [address]: Crystal Parks NP Acct: [id number] Unit: [id number] AGE: 46 Location: [facility] Re03/04/17 SEX: F Status: REG REF SPEC: [id number] IDALIA: 03/04/17-[address]: Crystal Parks NP REQ: [id number] RECD: 03/04/17 STATUS: COMP _ SOURCE: THROAT SPDESC: ORDERED: Throat Culture COMMENTS: [id number] Procedure Result Reported Site Throat Culture Final 03/06/17- 1309 ML Organism 1 STREP GROUP C Quantity 3+ Throat cultures are clinically indicated to detect the presence of group A strep, arcanobacterium and yeast. In certain cases, predominating organisms will be reported. * ML - MAIN LAB ([facility]) . END OF REPORT * ML=Testing performed at Main Lab DEPARTMENT OF PATHOLOGY, [address] [place] [address] Neo Coffey M.D. Director [facility] # [id number] 3 Because ethnic data is not always readily available, this report includes an eGFR for both -Americans and non- Americans. The National Kidney Disease Education Program (NKDEP) does not endorse the use of the MDRD equation for patients that are not between the ages of 18 and 70, are , have extremes of body size, muscle mass, or nutritional status, or are non- or non-. According to the National Kidney Foundation, irrespective of diagnosis, the stage of the disease is based on the level of kidney function: Stage Description GFR(mL/min/1.73 m(2)) 1 Kidney damage with normal or decreased GFR 90 2 Kidney damage with mild decrease in GFR 60-89 3 Moderate decrease in GFR 30-59 4 Severe decrease in GFR 15-29 5 Kidney failure <15 (or dialysis) 4 [id number] Would you like an EBV if Monospot is Negative?: Y 5 RESULT: Results may suggest recovery or reactivation. ADDITIONAL INFORMATION In most populations, at least 90% of the adult population will have been infected with EBV sometime in the past and therefore, will be positive for anti-VCA/IgG and anti- EBNA. Antibodies to EBNA develop 6-8 weeks after primary infection and remain present for life. Presence of VCA/ IgM antibodies indicates recent primary infection with EBV. Test Performed by: [facility] [place] [address] 6 Acute inflammation: >10.00 7 Acute inflammation: >10.00 8 Results suggest response to immunization or prior exposure to the virus. REFERENCE VALUE Vaccinated: Positive (>=1.1 AI) Unvaccinated: Negative (<=0.8 AI) 9 Test Performed by: [facility] [place] [address] 10 Serologic response to B. burgdorferi infection is not detected, but cannot rule out early infection during which low or undetectable antibody levels to B. burgdorferi may be present. If clinically indicated, a new serum specimen should be submitted in 7-14 days. Test Performed by: [facility] [place] [address] 11 Test Performed by: [facility] [place] [address] 12 Adult Reference Ranges for Cortisol, Free, LC/MS/MS: 8:00 - 10:00 AM 0.07-0.93 mcg/dL 4:00 - 6:00 PM 0.04-0.45 mcg/dL 10:00 - 11:00 PM 0.04-0.35 mcg/dL This test was developed and its analytical performance characteristics have been determined by [facility]. It has not been cleared or approved by FDA. This assay has been validated pursuant to the CLIA regulations and is used for clinical purposes. Test Performed by: [facility] [address] [place] [address] 13 [id number] No bands detected 15 No bands detected 16 Specific serologic response to B. burgdorferi infection is not detected, but cannot rule out early infection during which low or undetectable antibody levels to B. burgdorferi may be present. If clinically indicated, a new serum specimen should be submitted in 7-14 days. ADDITIONAL INFORMATION CDC criteria require >=5 bands for IgG or >=2 bands for IgM for the Immunoblot to be considered positive. Bands (e.g.,p41) may be detected in patients without Lyme disease, and patterns not meeting the CDC criteria should be interpreted with caution. Immunoblot should be ordered only on specimens that are positive or equivocal by a FDA-licensed Lyme disease antibody screening test (e.g., EIA). Test Performed by: [facility] - [address] [address] 17 ADDITIONAL INFORMATION This test was developed using an analyte specific reagent. Its performance characteristics were determined by [facility] in a manner consistent with CLIA requirements. This test has not been cleared or approved by the U.S. Food and Drug Administration. Test Performed by: [address] [address] 18 ANTIBODY NOT DETECTED REFERENCE RANGES: IgG <1:64 IgM <1:20 Elevated antibody levels to B. microti indicate exposure to the organism. Human babesiosis infection is transmitted by the bite of an infected Ixodes tick or less frequently from transfusion with blood from an infected donor. Definitive diagnosis is made by identifying intraerythrocytic organisms in peripheral blood. In patients with low parasitemia, antibody detection by IFA is recommended. IgG levels greater than or equal to 1:1024 can be detected in acute phase patients with parasites in blood smears. The IFA assay can be used as a seroepidemiologic tool to study the frequency and distribution of B. microti in endemic areas especially in persons with mixed infections also involving Borrelia burgdorferi. This test was developed and its analytical performance characteristics have been determined by [facility]. It has not been cleared or approved by the U.S. Food and Drug Administration. The FDA has determined that such clearance or approval is not necessary. This assay has been validated pursuant to the CLIA regulations and is used for clinical purposes. Test Performed by: [facility], [employer] [address] [place] [address] 19 [id number] Acute inflammation: >10.00 21 Cancelled due to duplicate test on this order Test Performed by: [address], [place] [address] 22 REFERENCE VALUE <=1.0 (Negative) 23 REFERENCE VALUE <20.0 (Negative) 24 Tests for antibodies to dsDNA and YEFRI antigens are not performed automatically unless the DELIO result is > or= 3.0 U. Studies performed at [facility] indicate that positive DELIO results <3.0 U are rarely accompanied by positive second order tests. Test Performed by: [facility] - [address] [address] 25 [id number] 26 ADDITIONAL INFORMATION This test was developed using an analyte specific reagent. Its performance characteristics were determined by [facility] in a manner consistent with CLIA requirements. This test has not been cleared or approved by the U.S. Food and Drug Administration. Test Performed by: [facility] - [address] [address] 27 ANTIBODY NOT DETECTED REFERENCE RANGES: IgG <1:64 IgM <1:20 Elevated antibody levels to B. microti indicate exposure to the organism. Human babesiosis infection is transmitted by the bite of an infected Ixodes tick or less frequently from transfusion with blood from an infected donor. Definitive diagnosis is made by identifying intraerythrocytic organisms in peripheral blood. In patients with low parasitemia, antibody detection by IFA is recommended. IgG levels greater than or equal to 1:1024 can be detected in acute phase patients with parasites in blood smears. The IFA assay can be used as a seroepidemiologic tool to study the frequency and distribution of B. microti in endemic areas especially in persons with mixed infections also involving Borrelia burgdorferi. This test was developed and its analytical performance characteristics have been determined by [facility]. It has not been cleared or approved by the U.S. Food and Drug Administration. The FDA has determined that such clearance or approval is not necessary. This assay has been validated pursuant to the CLIA regulations and is used for clinical purposes. Test Performed by: [employer] [address] [place] [address] 28 Because ethnic data is not always readily available, this report includes an eGFR for both -Americans and non- Americans. The National Kidney Disease Education Program (NKDEP) does not endorse the use of the MDRD equation for patients that are not between the ages of 18 and 70, are , have extremes of body size, muscle mass, or nutritional status, or are non- or non-. According to the National Kidney Foundation, irrespective of diagnosis, the stage of the disease is based on the level of kidney function: Stage Description GFR(mL/min/1.73 m(2)) 1 Kidney damage with normal or decreased GFR 90 2 Kidney damage with mild decrease in GFR 60-89 3 Moderate decrease in GFR 30-59 4 Severe decrease in GFR 15-29 5 Kidney failure <15 (or dialysis) 29 Test Performed by: [place] [address] 30 Desirable <150 Borderline high 150-199 High 200-499 Very High >500 31 Desirable <200 Borderline high 200-239 High >239 32 Low <40 Desirable: 40-60 High: >60 33 Desirable: <100 mg/dL Near Optimal: 100-129 mg/dL Borderline High: 130-159 mg/dL High: 160-189 mg/dL Very High: >189 mg/dL 34 [id number] Normal Range 180 to 914 Indeterminate Range 145 to 180 Deficient Range <145 36 [id number] Acute inflammation: >10.00 38 [id number] 40 [id number] 41 No bands detected 42 No bands detected 43 Specific serologic response to B. burgdorferi infection is not detected, but cannot rule out early infection during which low or undetectable antibody levels to B. burgdorferi may be present. If clinically indicated, a new serum specimen should be submitted in 7-14 days. ADDITIONAL INFORMATION CDC criteria require >=5 bands for IgG or >=2 bands for IgM for the Immunoblot to be considered positive. Bands (e.g.,p41) may be detected in patients without Lyme disease, and patterns not meeting the CDC criteria should be interpreted with caution. Immunoblot should be ordered only on specimens that are positive or equivocal by a FDA-licensed Lyme disease antibody screening test (e.g., EIA). Test Performed by: [facility] [address] [id number] 44 Desirable <150 Borderline high 150-199 High 200-499 Very High >500 45 Desirable <200 Borderline high 200-239 High >239 46 Low <40 Desirable: 40-60 High: >60 47 Desirable: <100 mg/dL Near Optimal: 100-129 mg/dL Borderline High: 130-159 mg/dL High: 160-189 mg/dL Very High: >189 mg/dL 48 FASTING 49 Because ethnic data is not always readily available, this report includes an eGFR for both -Americans and non- Americans. The National Kidney Disease Education Program (NKDEP) does not endorse the use of the MDRD equation for patients that are not between the ages of 18 and 70, are , have extremes of body size, muscle mass, or nutritional status, or are non- or non-. According to the National Kidney Foundation, irrespective of diagnosis, the stage of the disease is based on the level of kidney function: Stage Description GFR(mL/min/1.73 m(2)) 1 Kidney damage with normal or decreased GFR 90 2 Kidney damage with mild decrease in GFR 60-89 3 Moderate decrease in GFR 30-59 4 Severe decrease in GFR 15-29 5 Kidney failure <15 (or dialysis) 50 Test Performed by: [facility] [address] [place] [address] Front Elevator Operator: Nicanor Medina III, M.D. 51 Test Performed by: [place] [address] Front Elevator Operator: Nicanor Medina III, M.D. 52 For research use only. Test Performed by: [address] [address] Front Elevator Operator: Nicanor Medina III, M.D. 53 Test Performed by: [facility] [address] [place] [address] Front Elevator Operator: Nicanor Medina III, M.D. 54 -- REFERENCE VALUE -- < 80 (Follicular) <285 (Luteal) Test Performed by: [facility] [address] [place] [address] Front Elevator Operator: Nicanor Medina III, M.D. 55 THERAPEUTIC TARGET FOR THE TREATMENT OF DIABETES MELLITUS PATIENTS IS <7% HBA1C, AND IN SELECTIVE PATIENTS <6.0%. PLEASE REFER TO [place] [employer] DIABETIC CARE GUIDELINES FOR FURTHER INFORMATION. 56 Anion gap measurement may be of limited value in the presence of any alkalosis, especially in a combined acid base disorder. . 57 A metabolite of Naproxen, O-desmethylnaproxen, has been shown to interfere with the Jendrassik-Margarito method for measuring total bilirubin. Samples from patients who have taken Naproxen have shown spurious elevation in total bilirubin levels. 58 Because ethnic data is not always readily available, this report includes an eGFR for both -Americans and non- Americans. The National Kidney Disease Education Program (NKDEP) does not endorse the use of the MDRD equation for patients that are not between the ages of 18 and 70, are , have extremes of body size, muscle mass, or nutritional status, or are non- or non-. According to the National Kidney Foundation, irrespective of diagnosis, the stage of the disease is based on the level of kidney function: Stage Description GFR(mL/min/1.73 m(2)) 1 Kidney damage with normal or decreased GFR 90 2 Kidney damage with mild decrease in GFR 60-89 3 Moderate decrease in GFR 30-59 4 Severe decrease in GFR 15-29 5 Kidney failure <15 (or dialysis) 59 mL/min/1.73m2 . Normal Function or Mild Renal Disease, if clinically at risk: >or=60 Moderately decreased: 30 - 59 Severely decreased: 15 - 29 Renal Failure: <15 . Please note that the MDRD equation requires an additional adjustment for -Americans (multiply the GFR result by 1.210). . Glomerular Filtration Rate (GFR) is estimated based on the MDRD equation, which assumes a steady state for creatinine (Gaye Int Med 139/2 137-149, 2003), as recommended by the National Kidney Disease Education Program in conjunction with the National Institutes of Health and the National Kidney Foundation. . Clinical conditions in which it may be necessary to measure GFR by using clearance methods include extremes of age and body size, severe malnutrition or obesity, diseases of skeletal muscle, paraplegia or quadriplegia, vegetarian diet, rapidly changing kidney function, and calculation of the dose of potentially toxic drugs that are excreted by the kidneys. 60 NORMAL THROAT ARELY Procedures Date CPT Code Description Status 03/11/2017 92339 Therapeutic,Prophylactic,Or Diagnostic Inj,SC/Im Completed Specify Drug 10/08/2014 52715 EKG, at Least 12 Leads w/Interpretation and Report Completed 05/23/2013 Mammogram Completed Encounters Type Date Location Provider CPT E/M Dx Office Visit 03/15/2017 4:30p [place] [address] R10.10 Office Visit 03/11/2017 4:30p [place] [address] B27.99 Office Visit 03/04/2017 9:00a [place] [address] J06.9 Office Visit 02/11/2017 8:45a [place] [address] J06.9 Office Visit 12/29/2016 4:45p Main Office SILVERIO Cochran-C 33146 R53.83 Office Visit 06/24/2016 2:15p Main Office SILVERIO Cochran-C 84468 Z00.00 R42 M25.50 Office Visit 06/10/2016 10:15a Main Office SILVERIO Cochran-James 16965 R53.83 R42 Office Visit 04/04/2015 3:45p Main Office SILVERIO Padilla-C 44932 S33.6xxD M54.32 Office Visit 03/30/2015 9:45a Main Office Liz Daily M.D., R.D. 97158 M54.5 Office Visit 03/12/2015 3:30p Main Office Laron Hood M.D. 43095 I10 Office Visit 11/08/2014 9:30a Main Office Laron Hood M.D. 61273 Z00.00 I10 Z86.711 Office Visit 10/08/2014 3:00p Main Office ZACH CochranPEli 74934 401.9 Office Visit 03/25/2012 11:30a Main Office Laron Hood M.D. 81629 692.4 Office Visit 01/20/2012 3:30p Main Office Laron Hood M.D. 42903 728.79 Office Visit 09/25/2011 4:30p Main Office ZACH CochranPEli 83771 300.02 Office Visit 09/11/2011 8:00a Main Office ZACH CochranPEli 16981 V70.0 300.02 704.1 790.6 Office Visit 09/01/2011 4:30p Main Office KALPANA Cochran 80966 300.02 780.79 706.1 Office Visit 02/20/2011 10:00a Main Office Halina Willoughby M.D. 43245 034.0 Office Visit 01/02/2009 10:45a Main Office Angela Tejeda 02732 465.9 786.2 Office Visit 12/10/2008 9:45a Main Office KALPANA Padilla 33359 462 Office Visit 09/14/2008 11:00a Main Office Laron Hood M.D. 78797 796.2 Office Visit 12/09/2007 11:00a Main Office KALPANA Padilla 14265 845.09 Office Visit 12/07/2007 2:30p Main Office Laron Hood M.D. 89713 796.2 Office Visit 12/03/2006 10:30a Main Office Laron Hood M.D. 61590 465.9 Office Visit 06/10/2006 3:00p Main Office Laron Hood M.D. 42584 461.8 Office Visit 01/03/2004 11:15a Main Office Laron Hood M.D. 97135 789.06 Plan of Care Future Appointment(s):11/23/2017 9:00 am - Crystal Parks NP at Main [id number]/23/2017 - Crystal Parks, NPI10 Essential (primary) hypertensionComments:No acute concerns today.BP well controlled. No changes made to medication.Labs completed by Dr Fischer on 07/23 and reviewedNo need to repeat labs today.Follow up:follow up 3 months for physical
[2017-09-03] MEDS ORDERED: Lidocaine 2% PF * 5 ML VIAL ONE (09:14)
[2017-09-03] MEDS ORDERED: Rocuronium* 10 MG/ML VIAL ONE ×2 (09:14→11:13)
[2017-09-03] MEDS ORDERED: Propofol* 10 MG/ML 20 ML BTL IV PUSH ONE (09:14)
[2017-09-03] MEDS ORDERED: fentaNYL* 50 MCG/ML 2 ML VIAL (100 MCG VIAL) ONE (09:17)
[2017-09-03] MEDS ORDERED: Midazolam* 1 MG/ML 5 ML VIAL (5 MG) ONE (09:17)
[2017-09-03] MEDS ORDERED: Bupivacaine 0.25% W/EPI* 10 ML SDV ONE (09:49)
[2017-09-03] MEDS ORDERED: Dexamethasone IV* 4 MG/ML 1 ML (4 MG) ONE (10:21)
[2017-09-03] MEDS ORDERED: Ondansetron INJ* 2 MG/ML VIAL ONE (10:21)
[2017-09-03] MEDS ORDERED: Ketorolac INJ* 30 MG/ML 1 ML VIAL ONE (10:21)
[2017-09-03] MEDS ORDERED: Metoclopramide IV* 5 MG/ML 2 ML VIAL ONE (10:21)
[2017-09-03] MEDS ORDERED: EPHEDrine (Pressors)* 50 MG/ML VIAL ONE (10:47)
[2017-09-03] MEDS ORDERED: Neostigmine Methylsulfate* 1 MG/ML 10 ML VIAL (1 mg/ml) ONE (11:39)
[2017-09-03] MEDS ORDERED: Glycopyrrolate IV* 0.2 MG/ML 1 ML VIAL ONE (11:40)
[2017-09-03] MEDS ORDERED: HYDROmorphone INJ* 0.5 MG/0.5 ML SYRINGE ONE (11:49)
[2017-09-03] MEDS ORDERED: Acetaminophen TAB* 325 MG PO PRN (12:06)
[2017-09-03] MEDS ORDERED: Naloxone* 0.4 MG/ML 1 ML VIAL IV PRN (12:06)
[2017-09-03] MEDS ORDERED: HYDROmorphone INJ* 0.5 MG/0.5 ML SYRINGE IV PRN ×2 (12:06→13:57)
[2017-09-03] MEDS ORDERED: DiMENhydriNATE IV* 50 MG/ML VIAL IV PUSH PRN (12:06)
[2017-09-03] MEDS ORDERED: MELOXICAM 15 MG PO PRN (13:50)
[2017-09-03] MEDS ORDERED: oxyCODONE/Acetamin 5/325 MG* TAB ONE (13:56)
[2017-09-03] MEDS ORDERED: Ondansetron INJ* 2 MG/ML VIAL IV PRN (13:59)
[2017-09-03] MEDS ORDERED: Citalopram TAB* 10 MG PO SCH (18:00)
[2017-09-03] MEDS: oxyCODONE/Acetamin 5/325 MG* TAB PO PRN (18:50)
[2017-09-03] MEDS: Ibuprofen TAB* 600 MG PO PRN (20:00)
--- NOTE | 2017-09-03 21:02 | OP ---
OPERATIVE REPORT: DATE OF OPERATION: 09/03/17 DATE OF : 74 SURGEON: Tarik Gonzales MD ANESTHESIA: General endotracheal tube. PRE-OP DIAGNOSES: Menorrhagia and leiomyomata. POST-OP DIAGNOSES: Menorrhagia and leiomyomata. OPERATIVE PROCEDURE: Laparoscopic supracervical hysterectomy and bilateral salpingectomy. ESTIMATED BLOOD LOSS: 100 cc. COMPLICATIONS: None. FINDINGS: On laparoscopy, the anterior bladder flap appeared normal with some scarring to the uterus . The cul-de-sac appeared normal. Both tubes and ovaries appeared normal. The uterus was bulky. T he liver surface was smooth. DESCRIPTION OF PROCEDURE: The patient identified, procedure identified as a laparoscopic supracervic al hysterectomy. The patient was taken to the operating room, prepped and draped in the usual fashio n, in the dorsal lithotomy position under general anesthesia. A clear view uterine manipulator was p laced in the cervical os for manipulation. A small infraumbilical incision was made and carried down through fat fascia and peritoneum. The GelPOINT was placed and the trocars were placed in the later al aspect through the GelPOINT. Using the 30-degree scope, the tubes were grasped and with the LigaS ure, were cauterized and then excised. The ovarian ligament was then cauterized. The round ligament was cauterized and incised bilaterally. A bladder flap was created via sharp and blunt dissection un til the bladder was free of the upper part of the cervix. The cardinal ligaments were then ligated u sing the LigaSure bilaterally and then incised once blanching of the uterus was noted. Hemostasis oc curred using the LigaSure. The Supra loop was passed in through the lower GelPOINT trocar site and p assed over the uterus and around the cervix. It was inspected around its circumference using 110 of pure cut. The uterus was excised from the cervical stump. The uterus was then placed within a GelPO INT bag, brought up through the incision then hand morcellated on the surface of the skin until the u terus was excised. The bag was found to be intact. The suction gang drill operator was used to irrigate the ab domen having replaced the GelPOINT and suction was used to remove any clots. Good hemostasis was stephen ified. The cervical stump was cauterized in the endocervix using the laparoscopic scissors. Good hem ostasis again verified. All instruments removed from the abdomen. The abdomen was deflated of CO2. The Jeanmarie retractor was removed. The fascia was then closed using 0 Polysorb in a running fashion. Hemostasis in the subcu and the skin was closed with 4-0 Monocryl in a subcuticular fashion and ski n glue was applied. All sponge and instrument counts were correct and the patient returned to [facility] room in stable condition. [id number]/[facility] #: [id number]
[2017-09-03] MEDS ORDERED: MELOXICAM 7.5 MG PO PRN (22:00)
[2017-09-04] MEDS: oxyCODONE/Acetamin 5/325 MG* TAB PO PRN (00:25)
[2017-09-04] MEDS: Ibuprofen TAB* 600 MG PO PRN (08:57)
[2017-09-04] MEDS ORDERED: Hydrochlorothiazide TAB* 25 MG PO SCH (09:00)
[2017-09-04] MEDS ORDERED: Lisinopril TAB* 10 MG PO SCH (09:00)
[2017-09-04 10:03] LABS: Hematocrit 28 % (35-47); Hemoglobin 9.2 g/dl (12.0-16.0)
[2017-09-04 12:03] VITALS: BP 107/64
--- NOTE | 2017-11-04 10:40 | DS ---
CC: Dr. Hood at [facility]. DISCHARGE SUMMARY: DATE OF ADMISSION: 09/03/17. DATE OF DISCHARGE: 09/04/17. PRINCIPAL DIAGNOSIS: Leiomyomata. HISTORY: This is a 46-year-old, 2, para 2 with leiomyomata and heavy painful periods who saranya ires definitive Rx for old fibroids. She has tried hormonal treatment and nonsteroidals without reli ef. PAST MEDICAL HISTORY: Significant for hypertension, ankylosing spondylitis. PAST SURGICAL HISTORY: Includes appendectomy, cholecystectomy, and tubal ligation. On admission, her blood pressure 116/70, temp was 98.6. HEENT, within normal limits. Lungs, clear. Heart was regular rhythm. Abdomen, soft and nontender. She was admitted on the and underwent a laparoscopic supracervical hysterectomy and bilateral salpingectomy. Estimated blood loss 100 cc. She did well postoperatively with a post-op H and H of 9.2 and 28. Pathology showed uterine mild lei omyoma and bilateral fallopian tubes without any abnormalities. The weight of the uterus was 127 g. The patient did well postoperatively and went home on postoperative day #1. [id number]/[facility] #: [id number]
== END 2017-09-04 12:30 | disposition home or self-care (01) ==
LOC: INTOOBSV 08:02 → AA 08:02 → SSU 13:25 → UNDODISIN 09-04 12:30
PROVIDERS: ADMIT Obstetrics & Gynecology; ATTEND Obstetrics & Gynecology
PROC: 0UT74ZZ Resection of Bilateral Fallopian Tubes, Percutaneous Endoscopic Approach (ICD-10-PCS; 2017-09-03)
PROC: 0UT94ZL Resection of Uterus, Supracervical, Percutaneous Endoscopic Approach (ICD-10-PCS; principal; 2017-09-03 10:00)
DX: N92.0 Excessive and frequent menstruation with regular cycle (principal); D25.0 Submucous leiomyoma of uterus; I10 Essential (primary) hypertension; M45.9 Ankylosing spondylitis of unspecified sites in spine; Z79.899 Other long term (current) drug therapy; Z80.3 Family history of malignant neoplasm of breast; Z80.42 Family history of malignant neoplasm of prostate; Z83.3 Family history of diabetes mellitus; Z81.1 Family history of alcohol abuse and dependence; Z82.49 Family history of ischemic heart disease and other diseases of the circulatory system; Z83.42 Family history of familial hypercholesterolemia; Z83.49 Family history of other endocrine, nutritional and metabolic diseases; Z83.79 Family history of other diseases of the digestive system; Z82.3 Family history of stroke; Z80.0 Family history of malignant neoplasm of digestive organs
CPT/HCPCS: 36415; 85014; 85018; 88307; A9270-GY; G0378; J0690; J1100; J1170; J1885; J2250; J2405; J2704; J2710; J2765; J3010

== ENCOUNTER 2018-12-19 11:38 | Emergency (ER) | payer SELFPAY ==
--- NOTE | 2018-12-19 15:09 | ED ---
Complex/Multi-Sys Presentation - HPI Summary HPI Summary: 47-year-old female presents with potential CO exposure today. she was in the office for 3 hours this morning with potential of co. she states she has headache. She was tested at 13 by ems and not given anything. She has no medical conditions. Is a nonsmoker. Building was found to have CO. - History Of Current Complaint Chief Complaint: EDChemNuclearExpose Time Seen by Provider: 12/19/18 13:52 - Allergies/Home Medications Allergies/Adverse Reactions: Allergies Allergy/AdvReac Type Severity Reaction Status Date / Time No Known Allergies Allergy Verified 12/19/18 12:01 PMH/Surg Hx/FS Hx/Imm Hx Endocrine/Hematology History: Denies: Hx Diabetes, Hx Thyroid Disease Cardiovascular History: Reports: Hx Hypertension Denies: Hx Pacemaker/ICD Respiratory History: Denies: Hx Asthma, Hx Chronic Obstructive Pulmonary Disease (COPD) GI History: Denies: Hx Ulcer History: Denies: Hx Renal Disease Musculoskeletal History: Reports: Other Musculoskeletal History - spondylitis Sensory History: Denies: Hx Contacts or Glasses, Hx Hearing Aid Opthamlomology History: Denies: Hx Contacts or Glasses Neurological History: Reports: Other Neuro Impairments/Disorders - 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 APPENDECTOMY. tubal ligation Hx Anesthesia Reactions: No Infectious Disease History: No Infectious Disease History: Reports: Hx Shingles - 12/08 last outbreak Denies: Hx Hepatitis, Hx Human Immunodeficiency Virus (HIV), Traveled Outside the [place] in Last 30 Days - Family History Known Family History: Positive: Non-Contributory - Social History Alcohol Use: Occasionally Substance Use Type: Reports: None Smoking Status (MU): Never Smoked Tobacco Review of Systems Negative: Fever Negative: Chest Pain Negative: Shortness Of Breath Positive: Headache All Other Systems Reviewed And Are Negative: Yes Physical Exam Triage Information Reviewed: Yes Vital Signs On Initial Exam: Initial Vitals Temp Pulse Resp BP Pulse Ox 99.2 F 77 18 149/106 96 12/19/18 11:56 12/19/18 11:56 12/19/18 11:56 12/19/18 11:56 12/19/18 11:56 Vital Signs Reviewed: Yes Appearance: Positive: Well-Appearing Skin: Positive: Warm, Dry Head/Face: Positive: Normal Head/Face Inspection Eyes: Positive: Normal, Conjunctiva Clear ENT: Positive: Pharynx normal Respiratory/Lung Sounds: Positive: Clear to Auscultation, Breath Sounds Present Cardiovascular: Positive: Normal, RRR Musculoskeletal: Positive: Normal Neurological: Positive: Normal Psychiatric: Positive: Normal Procedures - Sedation Patient Received Moderate/Deep Sedation with Procedure: No Diagnostics - Vital Signs Vital Signs Temp Pulse Resp BP Pulse Ox 12/19/18 11:56 99.2 F 77 18 149/106 96 - Laboratory Lab Results: Lab Results 12/19/18 Range/Units 12:24 Carbon Monoxide Screen 7.0 H (<4.0) % Lab Statement: Any lab studies that have been ordered have been reviewed, and results considered in the medical decision making process. Re-Evaluation - Re-Evaluation First Eval Re-Evaluation Time: 15:58 Change: Improved Comment: feeling better Complex Multi-Symp Course/Dx Course Of Treatment: 47-year-old female presents with potential CO exposure today. she was in the office for 3 hours this morning with potential of co. she states she has headache. She was tested at 13 by ems and not given anything. She has no medical conditions. Is a nonsmoker. Building was found to have CO. On exam has normal physical exam. CO 7. placed on oxygen and repeat is 4.7 and patient asx so will discharge. patient understand and agrees with plan. - Diagnoses Differential Diagnoses/HQI/PQRI: Other - co Provider Diagnoses: Carbon monoxide exposure Discharge ED - Sign-Out/Discharge Documenting (check all that apply): Patient Departure - Discharge Plan Condition: Good Disposition: HOME Patient Education Materials: Carbon Monoxide Poisoning (ED) Referrals: Laron Hood MD [Primary Care Provider] - Additional Instructions: Take tyenlol or ibuprofen every 6 hours as needed for pain Return to ED if develop any new or worsening symptoms - Billing Disposition and Condition Condition: GOOD Disposition: Home
[2018-12-19 16:18] VITALS: BP 131/74
== END 2018-12-19 15:47 | disposition home or self-care (01) ==
LOC: ED 11:38
DX: Z57.39 Occupational exposure to other air contaminants (principal); I10 Essential (primary) hypertension; F41.9 Anxiety disorder, unspecified; Y99.0 Civilian activity done for income or pay
CPT/HCPCS: 36415; 82375; 99282